=== PATIENT | male | born 1985 | race African-American/Black ===

== ENCOUNTER 2019-08-07 22:58 | Emergency (ER) | payer OTHER ==
--- NOTE | 2019-08-07 23:07 | PDOC ---
History of Present Illness - General Chief Complaint: Pain, Acute Stated Complaint: CHEST PAIN X 1 WEEK Time Seen by Provider: 08/07/19 23:07 History Source: Patient Exam Limitations: No Limitations - History of Present Illness Initial Comments: 08/07/19 23:11 This is a 33-year-old male who comes in complaining of pleuritic type chest pain x2 weeks. Patient said is worse when he moves worse when he coughs and worse when he takes a deep breath. Patient denies any fevers or chills. Patient denies any history of similar symptoms. Patient denies any history of hypertension high cholesterol diabetes or family history of heart disease. Patient says he does smoke occasionally cigarettes. Allergies: as per nursing notes Past Medical History: none Social history: Lives with family. No smoking. No alcohol. No illicit drugs. Surgical history: None General: No fevers or chills, no weakness, no weight loss HEENT: No change in vision. No sore throat,. No ear pain CardioVascular: no chest discomfort. No shortness of breath Respiratory:No cough, or wheezing. Gastrointestinal: no nausea, vomiting, diarrhea or constipation, No rectal bleeding Genitourinary: No dysuria, hematuria, or frequency Musculoskeletal: No joint or muscle pain or swelling Neurologic: No headache, vertigo, dizziness or loss of consciousness Psychiatric: nor depression Skin: No rashes or easy bruising Endocrine: no increased thirst or abnormal weight change Allergic: no skin or latex allergy All other systems reviewed and normal Exam: General: Well-nourished well-developed individual, no acute distress HEENT: Throat: Normal, tonsils normal, no erythema or exudate Neck: Supple, no meningeal signs, no lymphadenopathy Eyes::Pupils equal reactive and round, extraocular motion intact Chest: Pain is reproduced with palpation and movement Cardiac: S1-S2 normal, regular rate and rhythm, no murmurs rubs or gallops Respiratory: Lungs clear to auscultation bilateral Abdomen: Soft, nondistended, normal bowel sounds, there is no tenderness on palpation diffusely Extremities: Warm, dry, no cyanosis, clubbing, or edema Skin: No rashes Neuro: Alert and oriented x3, CN II - XII intact, nonfocal exam with normal strength, normal sensation, normal reflexes, normal gait, Psych: Normal mood and affect Assessment and plan: This is a 33-year-old male who comes in complaining of 1-1/ 2 weeks of pleuritic type chest pain. \ Patient's EKG shows normal sinus rhythm at a rate of [address] elevations in all leads most likely secondary to early re-pole colorization but could indicate also a pericarditis Cardiac enzymes CBC and comp were ordered and a sent. 08/08/19 01:02 Cardiac enzymes were normal CBC was normal comp was normal patient feels better with the Toradol and will be discharged. Unlikely this is anything more than early repolarization however recommended that patient follow-up with a aircraft magneto mechanic and he was given a copy of his EKG 08/08/19 01:03 08/08/19 01:03 Past History - Past Medical History Allergies/Adverse Reactions: Allergies Allergy/AdvReac Type Severity Reaction Status Date / Time No Known Allergies Allergy Verified 08/07/19 23:06 Home Medications: Ambulatory Orders NK [No Known Home Medication] 08/07/19 *Physical Exam - Vital Signs Last Vital Signs Temp Pulse Resp BP Pulse Ox 98.7 F 75 16 126/76 98 08/07/19 23:07 08/07/19 23:07 08/07/19 23:07 08/07/19 23:07 08/07/19 23:07 ED Treatment Course - LABORATORY CBC & Chemistry Diagram: 08/07/19 23:45 08/07/19 23:45 - ADDITIONAL ORDERS Additional order review: Laboratory Results 08/07/19 08/07/19 23:45 23:45 Sodium 141 Potassium 4.0 Chloride 109 H Carbon Dioxide 29 Anion Gap 3 L BUN 12.5 Creatinine 1.2 Est GFR (CKD-EPI)AfAm 92.18 Est GFR (CKD-EPI)NonAf 79.53 Random Glucose 101 Calcium 8.9 Total Bilirubin 0.4 AST 28 ALT 50 Alkaline Phosphatase 78 Creatine Kinase 719 H Troponin I < 0.02 Cancelled Total Protein 7.7 Albumin 3.8 08/07/19 23:45 RBC 4.58 MCV 81.9 MCHC 35.0 RDW 13.2 MPV 8.8 Neutrophils % 62.5 Lymphocytes % 25.4 Monocytes % 9.3 Eosinophils % 2.1 Basophils % 0.7 - RADIOLOGY Radiology Studies Ordered: Category Date Time Status CHEST X-RAY PORTABLE* [RAD] Stat Radiology 08/07/19 23:33 Taken Discharge - Discharge Information Problems reviewed: Yes Clinical Impression/Diagnosis: Pleuritic chest pain Condition: Stable Disposition: HOME - Admission No - Follow up/Referral - Patient Discharge Instructions Additional Instructions: Take ibuprofen 3 tablets 3 times a day with food do not take on an empty stomach or alternately you can take Aleve 2 tablets twice a day. Follow-up with your primary care doctor and a aircraft magneto mechanic. Return to the emergency department immediately with ANY new, persistent or worsening symptoms. Continue any medications as previously prescribed by your physician. You should follow up with your primary doctor as soon as possible regarding today's emergency department visit. . Please make sure your doctor reviews the results of your emergency evaluation. Thank you for coming to the Emergency Department today for your care. It was a pleasure to see you today. Please note that your evaluation is INCOMPLETE until you follow-up with your doctor. - Post Discharge Activity
[2019-08-07 23:11] VITALS: BP 126/76; PULSE 75; TEMP 98.7; BMI 32.7
[2019-08-08 00:35] LABS: BASO % 0.7 % (0-2.0); EOS % 2.1 % (0-4.5); HEMATOCRIT 37.5 % (35.4-49); HEMOGLOBIN 13.1 GM/dL (11.7-16.9); LYMPH % 25.4 % (8-40); MCH 28.7 pg (25.7-33.7); MEAN CELL VOLUME 81.9 fl (80-96); MEAN PLT VOLUME 8.8 fl (7.5-11.1); MONO % 9.3 % (3.8-10.2); NEUT % 62.5 % (42.8-82.8); PLATELET COUNT 349 K/MM3 (134-434); RBC 4.58 M/mm3 (4.00-5.60); RDW 13.2 % (11.9-15.9); WHITE BLOOD COUNT 8.8 K/mm3 (4.0-10.0)
[2019-08-08 00:58] LABS: ALBUMIN 3.8 g/dl (3.4-5.0); ALK PHOS 78 U/L (45-117); ANION GAP 3 MMOL/L (8-16); BILIRUBIN,TOTAL 0.4 mg/dL (0.2-1); BLOOD UREA NITROGEN 12.5 mg/dL (7-18); CALCIUM 8.9 mg/dL (8.5-10.1); CHLORIDE 109 mmol/L (98-107); CO2 29 mmol/L (21-32); CREATININE 1.2 mg/dL (0.55-1.3); GLUCOSE,RANDOM 101 mg/dL (74-106); SGOT/AST 28 U/L (15-37); SGPT/ALT 50 U/L (13-61); SODIUM 141 mmol/L (136-145); TOT PROT 7.7 g/dl (6.4-8.2)
--- NOTE | 2019-08-08 09:45 | EKG ---
Test Reason : Blood Pressure : / mmHG Vent. Rate : 071 BPM Atrial Rate : 071 BPM P-R Int : 250 ms QRS Dur : 094 ms QT Int : 368 ms P-R-T Axes : 052 031 027 degrees QTc Int : 399 ms SINUS RHYTHM WITH 1ST DEGREE A-V BLOCK ST ELEVATION, CONSIDER EARLY REPOLARIZATION BORDERLINE ECG NO PREVIOUS ECGS AVAILABLE Confirmed by SENTHIL HUI MD ([id number]) on 08/08/2019 9:44:55 AM Referred By: MD LEBLANC Confirmed By:SENTHIL HUI MD
== END 2019-08-08 01:07 | disposition home or self-care (01) ==
LOC: FER 22:58
DX: R07.89 Other chest pain (principal)
CPT/HCPCS: 36415; 71045-TC-FY; 80053; 82550; 82553; 84484; 85025; 93005; 99282-25